=== PATIENT | female | born 1980 | race Caucasian/White ===

== ENCOUNTER 2019-09-09 16:38 | Emergency (ER) | payer MEDICAID, OTHER ==
[~2019-09-09] VITALS: Ht 167.6 cm; Wt 72.6 kg
[2019-09-09 16:43] VITALS: BP 144/85
--- NOTE | 2019-09-09 16:45 | NUR ---
NO ROOM AVAILABLE. PT SENT TO THE LOBBY.
--- NOTE | 2019-09-09 18:22 | NUR ---
PT AMBULATED TO BED 10.
--- NOTE | 2019-09-09 18:32 | NUR ---
C/O BODYACHES, HACKING MOIST COUGH WITH ANTERIOR CHESTWALL PAIN, FEVER, NASAL CONGESTION, FATIGUE X 4 DAYS
--- NOTE | 2019-09-09 18:46 | NUR ---
INFLUENZA AND STREP SWABS COLLECTED ; TAKEN TO LAB
[2019-09-09] MEDS ORDERED: IBUPROFEN 800 MG TAB PO ONE (18:50)
[2019-09-09] MEDS ORDERED: KETOROLAC 30 MG/ML VIAL IM ONE (18:55)
--- NOTE | 2019-09-09 18:59 | NUR ---
CXR COMPLETED IN RADIOLOGY
--- NOTE | 2019-09-09 19:21 | NUR ---
RECEIVED REPORT FROM DAVIDSON GONZALEZ.
--- NOTE | 2019-09-09 19:48 | NUR ---
PATIENT SITTING QUIETLY IN BED. WILL CONTINUE TO MONITOR.
--- NOTE | 2019-09-09 20:24 | NUR ---
Dr. Wells examining patient.
[2019-09-09 20:50] VITALS: BP 131/79
--- NOTE | 2019-09-09 20:50 | NUR ---
Patient discharged with v/s stable. Written and verbal after care instructions given and explained. Patient alert, oriented and verbalized understanding of instructions. Ambulatory with steady gait. All questions addressed prior to discharge. ID band removed. Patient advised to follow up with PMD. Rx of Promethazine cough syrup, Tamiflu, and Motrin given. Patient educated on indication of medication including possible reaction and side effects. Opportunity to ask questions provided and answered.
== END 2019-09-09 20:50 | disposition home or self-care (01) ==
LOC: MED 16:38
DX: J09.X2 Influenza due to identified novel influenza A virus with other respiratory manifestations (principal); B34.9 Viral infection, unspecified; H11.31 Conjunctival hemorrhage, right eye
CPT/HCPCS: 71046; 81002; 81025; 86701; 87081; 87804; 96372; 99284; J1885

== ENCOUNTER 2019-09-28 05:31 | Emergency (ER) | payer OTHER, MEDICAID ==
[~2019-09-28] VITALS: Ht 170.2 cm; Wt 61.2 kg
[2019-09-28 05:39] VITALS: BP 125/80
--- NOTE | 2019-09-28 05:59 | NUR ---
39 Y/O FEMALE PRESENTS TO ED, C/O COUGHING X2 WEEKS. PT STATES BEING DISCHARGED ON 09/09/19 AND DIAGNOSED WITH FLU, MEDICATION RX PROVIDED. PT STATES BEING UNABLE TO OBTAIN MEDICATIONS IN PHARMACY. PT HAS PERSISTENT DRY COUGH. C/O PAIN ON THROAT FROM COUGHING ALONG WITH DIFFICULTY BREATHING. PT LUNG SOUNDS BILAT DIMINISHED. NO SOB/RESPIRATORY DISTRESS NOTED. PT VSS. ERMD AWARE. WILL CONTINUE TO MONITOR.
[2019-09-28] MEDS ORDERED: ALBUTEROL SULFATE/IPRATROPIU 3 ML SOL IH ONE ×2 (06:00→06:45)
--- NOTE | 2019-09-28 06:15 | NUR ---
RT AT BEDSIDE
[2019-09-28] MEDS ORDERED: methylPREDNISolone SS 125 MG/2 ML VIAL IM ONE (06:40)
--- NOTE | 2019-09-28 06:55 | NUR ---
FOLLOW UP [facility] THERAPY AND RESPIRATORY DRUG GIVEN ORDERED
--- NOTE | 2019-09-28 06:58 | NUR ---
RT AT BEDSIDE
[2019-09-28 07:14] VITALS: BP 133/88
--- NOTE | 2019-09-28 07:14 | NUR ---
PT DISCHARGED WITH PAPERWORK. EDUCATED PT REGARDING MEDICATIONS AND D/C INSTRUCTIONS. PT VERBALIZED UNDERSTANDING OF TEACHING. TOLD PT TO FOLLOW UP WITH PCP AND WHEN TO RETURN TO ED. PT AT STABLE CONDITION. NO SOB/DIFFICULTY BREATHING NOTED. ALL QUESTIONS ANSWERED.
== END 2019-09-28 07:14 | disposition home or self-care (01) ==
LOC: MED 05:31
DX: J45.909 Unspecified asthma, uncomplicated (principal)
CPT/HCPCS: 71045; 94640; 96372; 99284; J2930; J7620; Q0092